=== PATIENT | female | born 1970 ===

== ENCOUNTER 2017-01-12 15:36 | Emergency (ER) | payer BC ==
[2017-01-12 15:54] VITALS: BP 116/64
--- NOTE | 2017-01-12 16:51 | UC ---
Lower Extremity/Ankle HPI - HPI Summary HPI Summary: Pt states she went on a 10 mile hike yesterday and felt like there was a "knot" in right calf. Then today while playing horseshoes felt a pop in right calf and has throbbing pain without radiation. Finished keflex last week. No SOB. [ End ] - History of Current Complaint Chief Complaint: UCLowerExtremity Stated Complaint: RIGHT CALF INJURY Time Seen by Provider: 01/12/17 16:49 Hx Obtained From: Patient Hx Last Menstrual Period: 12/28/16 ?: No Onset/Duration: Sudden Onset Severity Initially: Mild Severity Currently: Moderate Aggravating Factor(s): Standing Alleviating Factor(s): Rest Able to Bear Weight: Yes - Allergies/Home Medications Allergies/Adverse Reactions: Allergies Allergy/AdvReac Type Severity Reaction Status Date / Time Codeine AdvReac Nausea Verified 01/12/17 15:54 Home Medications: Home Medications Lisinopril TAB* [Prinivil TAB*] 10 mg PO DAILY 01/12/17 [History Confirmed 01/12] Pantoprazole TAB (NF) [Protonix TAB (NF)] 40 mg PO BID 01/12/17 [History Confirmed 01/12/17] PMH/Surg Hx/FS Hx/Imm Hx Previously Healthy: Yes - Surgical History Surgical History: Yes Surgery Procedure, Year, and Place: lithotripsy 2012 - Family History Known Family History: Positive: None - Social History Occupation: Employed Full-time Lives: With Family Alcohol Use: Daily Alcohol Amount: 1 beer Substance Use Type: None Smoking Status (MU): Never Smoked Tobacco Review of Systems Constitutional: Negative Skin: Negative Eyes: Negative ENT: Negative Respiratory: Negative Cardiovascular: Negative Gastrointestinal: Negative Genitourinary: Negative Motor: Negative Neurovascular: Negative Musculoskeletal: Arthralgia Neurological: Negative Psychological: Negative All Other Systems Reviewed And Are Negative: Yes Physical Exam Triage Information Reviewed: Yes Appearance: Well-Appearing, No Pain Distress, Well-Nourished Vital Signs: Initial Vital Signs Temp 99.2 F 01/12/17 15:48 Pulse 84 01/12/17 15:48 Resp 14 01/12/17 15:48 BP 116/64 01/12/17 15:48 Pulse Ox 98 01/12/17 15:48 Eye Exam: Normal Neck: Positive: 1 Respiratory Exam: Normal Cardiovascular Exam: Normal Musculoskeletal: Positive: No Edema, ROM Limited @ - with flexion, Other: - medial calf pain mid calf. neg homans. no erythema. no streaking. no bruising. Negative: ROM Intact Neurological Exam: Normal Psychological Exam: Normal Skin Exam: Normal Lower Extremity Course/Dx - Course Course Of Treatment: Tried to place patient in [place] but too painful. Advised to place patient in posterior splint with flexion but declined. She will f/u with Ortho Saturday. She is aware to get out of car on way home to avoid DVT. No sono or MRI available here. Patient aware of plan. She is aware she can go to ED if pain persits or worsens for further imaging. She is not local and to return to [place] tomorrow - Differential Dx/Diagnosis Differential Diagnosis/HQI/PQRI: Sprain, Strain Provider Diagnoses: Calf tendon strain / rupture Discharge - Discharge Plan Condition: Good Disposition: HOME Patient Education Materials: Tendon Rupture (ED) Forms: *Work Release Referrals: Non Staff,Doctor [Primary Care Provider] - 2 Days Additional Instructions: Please be non weight bearing at this time until seen by a specialist .
[2017-01-12] MEDS ORDERED: HYDROcodone/ACETAMIN 5-325 MG* 1 TAB PO ONE (17:17)
[2017-01-12] MEDS ORDERED: Acetaminophen TAB* 325 MG PO ONE (17:28)
== END 2017-01-12 17:23 | disposition home or self-care (01) ==
LOC: UCCORT 15:36
DX: S86.911A Strain of unspecified muscle(s) and tendon(s) at lower leg level, right leg, initial encounter (principal); X58.XXXA Exposure to other specified factors, initial encounter; Y93.89 Activity, other specified; Y92.9 Unspecified place or not applicable; Z88.5 Allergy status to narcotic agent
CPT/HCPCS: 99203; G0463